=== PATIENT | female | born 1985 | race Asian ===

== ENCOUNTER → 2016-06-08 | Outpatient (CLI) | payer OTHER ==
--- NOTE | 2016-06-08 13:18 | US ---
June 08, [address] Damon, Thank you for allowing me to see your patient Maida Simon for anatomy evaluation. As you kn ow, she is a 31-year-old 1 with a dating 20 weeks 0 day(s). Her due date is 10/27/19 17 based on LMP consistent with 13-week ultrasound. She has no significant medical history She had a Sequential Screen done with the following results: Down syndrome risk 1 in 10,000, neural tube defe ct risk 1 in 4,600, and trisomy 18 risk 1 in 10,000. ULTRASOUND Number of fetuses: 1 presentation: breech Maximum vertical pocket: 5.7 cm Placenta - Appearance: Normal - Location: Anterior - Cord insertion: Intraplacental - Placenta previa: None Maternal Structures - Cervix: 5.5 cm measures transabdominally - Uterus: No obvious masses or anomaly seen - The adnexa were evaluated. No pathology was seen. -- Right ovary appears normal. It measures 3.1 x 1.0 x 2.7 cm. -- Left ovary not visualized Measurements Biparietal diameter: 48 mm, 20 weeks 5 days Head circumference: 177 mm, 20 weeks 2 days Abdominal circumference: 170 mm, 22 weeks 0 days Femur length: 32 mm, 20 weeks 0 days Humerus length: 31 mm, 20 weeks 3 days Transcerebellar diameter: 21 mm, 20 weeks 0 days Nasal Bone: 6.2 mm Nuchal Skinfold Thickness: 4.5 mm, Normal Average ultrasound age: 20 weeks 6 days Estimated weight: 389 gm weight percentile: 92 % Anatomy Head and Neck: - Cranial shape and integrity: Normal - Cerebral lateral ventricles: Normal, 5.2 mm - Choroid plexus: Normal - Midline falx: Normal - Cavum septum pellucidi: Normal - Brain parenchyma: Normal - Cerebellum: Normal - Cisternal Magna: Normal, 3.7 mm - Cerebellar vermis: Normal - Neck: Normal Face: - Upper lip: Normal - Profile: Normal - Coronal face: Normal - Alveolar ridge: Normal Heart: - 4-chamber view: Normal - LVOT: Normal - RVOT: Normal - Aortic arch: Normal - SVC/IVC: Normal - 3 vessel view: Normal - Interventricular septum: Normal - heart rate: 163 bpm Lungs: Normal Diaphragm: Normal Abdomen: - Stomach: Normal - Kidneys: Right: Normal, Left: Normal - Bladder: Normal - Abdominal Cord Insertion: Normal - Umbilical cord vessel number: 3 - Liver: Normal Spine: - Cervical: Normal - Thoracic: Normal - Lumbar: Normal - Sacral: Normal - Shape and curvature: Normal Extremities: - Right upper extremity: Normal architecture and position - Right Hand: Normal - Left upper extremity: Normal architecture and position - Left Hand: Normal - Right lower extremity: Normal architecture and position - Right foot: Normal - Left lower extremity: Normal architecture and position - Left foot: Normal Genitalia: Male Impression: 1. Intrauterine at 20 weeks 0 day(s), ultrasound is consistent with her established ASHLI of 10/26/2016. 2. Anatomy: The fetus measures appropriate for gestational age, measuring a normal weight and percen tile. Visualization of the fetus today reveals no overt structural anomalies. There is evidence of no rmal amniotic fluid, and movement was seen during the examination. 3. Cervical length is normal at 5.5 cm without evidence of insufficiency. Recommendations: I was pleased to share the results of today's ultrasound with your patient. I will leave further ult rasound follow-up to your clinical discretion. Thank you for allowing us the opportunity to evaluate your patient. Should you have any further ques tions or concerns please do not hesitate to contact me. No E&M for this encounter. Kacie Gillette M.D., Ph.D. It Security Analyst Department of Obstetrics and Gynecology [facility]
--- NOTE | 2016-06-08 18:00 | US ---
Ultrasound Obstetric second trimester greater than 14 weeks Indication: Evaluate anatomy. The estimated gestational age by LMP is 20 weeks and 0 days yie lding an EDC of October 26, 2016. Comparison: None. Findings: Number: 1 Presentation: Breech Placental Location: Anterior without previa Cervix: 5.5 cm MVP: 5.7 cm Heart Rate: 163 bpm. Right ovary measures 3.1 x 2.7 x 1 cm. Left ovary not visualized. Biometry: Biparietal Diameter: 48.37 mm 20 weeks, 5 days Head Circumference: 176.67 mm 20 weeks, 2 days Abdominal Circumference: 169.92 mm 22 weeks, 0 days Femur Length: 32.00 mm 20 weeks, 0 days Humerus Length: 31.07 mm 20 weeks, 3 days Transcerebellar Diameter: 21.00 mm 20 weeks, 0 days HC/AC: 1.04 (1.09 - 1.26) FL/BPD: 66% FL/AC: 19% Average Ultrasound Age: 20 weeks, 6 days EDC Based on Today's Average Ultrasound Age: October 20, 2016 Estimated weight is 389 gms +/- 57 gms. The estimated weight is at the 92 % based on previous dating. ANATOMY SURVEY: Supratentorial Brain: Normal Posterior Fossa: Normal Spine: Normal Nuchal fold: Normal Nose and Lips: Normal Facial Profile: Normal Heart: Four chamber heart. 163 bpm. Intact intraventricular septum. Cardiac Outflow Tracts: Normal Stomach: Normal Umbilical Cord Insertion: Normal Kidneys: Normal, no pyelectasis Bladder: Normal Number of Cord Vessels: Three Upper Extremities: Visualized Lower Extremities: Visualized. Impression: 1. Living hastings in breech presentation. 2. Size concordant with dates. 3. No overt anomalies detected. 4. Please see Dr. Kacie Gillette, consult and recommendations.
== END ==
LOC: FIMAGING 11:51
PROVIDERS: ATTEND Obstetrics & Gynecology
DX: Z34.02 Encounter for supervision of normal first pregnancy, second trimester (principal); Z3A.20 20 weeks gestation of pregnancy

== ENCOUNTER → 2016-10-03 | Outpatient (CLI) | payer OTHER | LOC: FIMAGING 09:35 | PROVIDERS: ATTEND Obstetrics & Gynecology | DX: O24.419 Gestational diabetes mellitus in pregnancy, unspecified control (principal); Z3A.36 36 weeks gestation of pregnancy ==

== ENCOUNTER 2016-10-13 15:53 | Observation (INO) | payer OTHER ==
[2016-10-13] MEDS ORDERED: OLIVE OIL 118 ML BTL MISC PRN (16:37)
[2016-10-13] MEDS ORDERED: EPSOM SALT 454 GM TP PRN (16:37)
[2016-10-13] MEDS ORDERED: OXYTOCIN/RINGERS LACTATE 1,000 ML IV PRN (16:37)
[2016-10-13] MEDS ORDERED: IBUPROFEN 600 MG TAB PO PRN (16:37)
[2016-10-13] MEDS ORDERED: TERBUTALINE SULFATE 1 MG/ML VIAL IV PRN (16:37)
[2016-10-13] MEDS ORDERED: LR 1,000 ML IV PRN (16:37)
--- NOTE | 2016-10-13 18:07 | GHP ---
[f rep st] HISTORY AND PHYSICAL DATE OF ADMISSION: 10/13/2016 CHIEF COMPLAINT: None. HISTORY OF PRESENT ILLNESS: The patient is a 31-year-old 1, para 0 female at 38 weeks and 1 day estimated gestational age, who presented to her routine OB visit for a nonstress test for gesta tional diabetes type A1. She had no complaints. She reported good movement and denied any le akage of fluid, vaginal bleeding, or contractions other than irregular Randall Gallegos. She had a non stress test with a baseline in the 140s and a late deceleration noted. There was good variability a nd no recurrent decelerations were noted. The patient was counseled along with her that I r ecommended admission and induction of labor for having a late deceleration at term, which could lali quita and placental insufficiency. She was counseled regarding all the risks of induction and they agreed to proceed. course has been significant for gestational diabetes controlled well with diet and being fo llowed by Dr. Borges: Status post the Tdap vaccine: Declined the flu vaccine: Genetic screening a ll normal with a normal sequential screen and normal anatomy scan: GBS negative. PAST MEDICAL HISTORY: Hospitalized for typhoid symptoms in high school. PAST SURGICAL HISTORY: Eye surgery to correct strabismus. SOCIAL HISTORY: Patient is and denies any tobacco, alcohol, or drug use. LABS: Blood type B positive, antibody screen negative, Pap normal, hematocrit 40 at new OB , varicella immune, rubella immune, RPR nonreactive, hepatitis B surface antigen and HIV negative, h ematocrit of 35 at 28 weeks, 1-hour GTT elevated and 3-hour GTT elevated, GBS negative, gonorrhea an d chlamydia negative. PHYSICAL EXAMINATION: VITAL SIGNS: Blood pressure 102/66, weight 137.5 pounds. heart rate t racing 140s with moderate variability present and late deceleration at 1530. GENERAL: No acute dis tress. Well-developed, well-nourished female. CARDIOVASCULAR: Regular rate and rhythm. LUNGS: C lear to auscultation bilaterally. PELVIC: Cervix 2-3 cm dilated, 70% effaced, and -2 station with fetus vertex in presentation. ASSESSMENT: Patient is a 31-year-old 1, para 0 female at 38 weeks and 1 day estimated gesta tional age with deceleration noted during testing for gestational diabetes. PLAN: 1. Admit for induction of labor. 2. Induction: Will initiate Pitocin for induction of labor. 3. Group B streptococcus negative. 4. Gestational diabetes, diet controlled: Will check blood sugar levels q.4 hours in labor and rosmery at as needed if less than 60/200. /[id number]/MODL
--- NOTE | 2016-10-13 18:50 | SOAPPROG ---
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 Fluid WNL Not in active labor A1GDM Plan: Reviewed plan of care with MFM Dr. Meghna Ignacio, recommend to send patient home as there is no evidence of distress of placental insufficiency based on negative spontaneous PRINCIPAL DATABASE DEVELOPER and normal fluid evaluation. Strict precautions given for return (LOF, VB, dec FM, labor, PIH symptoms) Plan return to L&D on Sunday for repeat NST, otherwise follow-up in office as scheduled 10/13/16 18:52 Subjective: Patient is a 31 yo G1 at 38w1d with complicated by A1GDM. She was seen in the office for NST and routine visit today, and immediately after being placed on the monitor she had a late decel. She was sent to L&D for plans for further monitoring and likely IOL. Upon presentation to L&D she has ongoing contractions every 2-5 minutes, 2/10, no LOF, active fetus, and no VB. Objective: 108/69, 88, 14, 37.4 NAD, rare mild distress with contraction Resp: unlabored CV: RRR Abd: gravid at term, soft, nontender Ext: no edema SVE 2.5 cm/60/-1/vtx/posterior (unchanged from clinic) FHR baseline 130-140, mod agusto, + acc, no decels Scott: every 2-5 minutes Bedside TAUS: ZOË 19.7 cm Vertex ICD10 Worksheet Patient Problems: Problems Problem Status Onset 38 weeks gestation of Acute
== END 2016-10-13 18:36 | disposition home or self-care (01) ==
LOC: FLD 15:53
PROVIDERS: ADMIT Obstetrics & Gynecology; ATTEND Obstetrics & Gynecology
DX: Z03.79 Encounter for other suspected maternal and fetal conditions ruled out (principal); O24.410 Gestational diabetes mellitus in pregnancy, diet controlled; Z3A.38 38 weeks gestation of pregnancy
CPT/HCPCS: G0378 ×2

== ENCOUNTER 2016-10-13 22:43 | Inpatient (IN) | payer OTHER ==
[2016-10-14] MEDS ORDERED: PROMETHAZINE HCL 25 MG TAB PO ONE (00:02)
--- NOTE | 2016-10-14 00:30 | OBPROG ---
OBG Progress Note Assessment/Plan: Assessment: 38w2d Early labor status reassuring A1GDM well controlled Plan: Morphine sleep at patient's request Reevaluate in 1-2 hours or later if patient able to sleep Admit if she demonstrates change on next cervical check 10/14/16 00:29 Subjective: G1 at 38w2d here for r/o labor. Medhat painfully x 3 hrs. No LOF or VB Objective: VS WNL (tracevue) Gen: uncomfortable during contractions, resting comfortable in between Abd: soft, nontender Ext: no edema SVE 3.5/50/-2/vtx/intact/posterior Current Contraction Pattern: Regular FHR (bpm): 130 FHR Pattern Variability: Moderate FHR Category: 1 Membranes: Intact ICD10 Worksheet Patient Problems: Problems Problem Status Onset 38 weeks gestation of Acute
[2016-10-14] MEDS ORDERED: LR 1,000 ML IV PRN (00:39)
[2016-10-14] MEDS ORDERED: OXYTOCIN/RINGERS LACTATE 1,000 ML IV PRN (00:39)
[2016-10-14] MEDS ORDERED: OLIVE OIL 118 ML BTL MISC PRN (00:39)
[2016-10-14] MEDS ORDERED: EPSOM SALT 454 GM TP PRN (00:39)
[2016-10-14] MEDS ORDERED: TERBUTALINE SULFATE 1 MG/ML VIAL IV PRN (00:39)
[2016-10-14] MEDS ORDERED: LIDOCAINE 1% 300 MG/30 ML SDV ONE (00:56)
[2016-10-14] MEDS ORDERED: TERBUTALINE SULFATE 1 MG/ML VIAL ONE (00:56)
[2016-10-14] MEDS ORDERED: OLIVE OIL 118 ML BTL ONE (00:56)
[2016-10-14] MEDS ORDERED: AMMONIA AROMATIC 1 EACH AMP IH ONE (00:56)
[2016-10-14] MEDS ORDERED: OXYTOCIN 10 UNIT/ML VIAL ONE (00:56)
[2016-10-14] MEDS ORDERED: MISOPROSTOL 200 MCG TAB ONE (00:57)
[2016-10-14 00:58] LABS: % IMMATURE GRANULYOCYTES 0.5 % (0.0-1.1); ABSOLUTE IMMATURE GRANULOCYTES 0.07 10^3/uL (0.00-0.10); ADD DIFF? NO; ADD MORPH? NO; ADD SCAN? NO; ATYPICAL LYMPHOCYTE FLAG 0 (0-99); FRAGMENT RBC FLAG 0 (0-99); HEMATOCRIT 40.2 % (38.0-47.0); HEMOGLOBIN 13.6 g/dL (12.6-16.3); LEFT SHIFT FLG 0 (0-99); LIPEMIA HEMOLYSIS FLAG 90 (0-99); MEAN CELL HEMOGLOBIN 31.6 pg (27.9-34.1); MEAN CELL HEMOGLOBIN CONCENTR. 33.8 g/dL (32.4-36.7); MEAN CELL VOLUME 93.3 fL (81.5-99.8); MEAN PLATELET VOLUME 11.1 fL (8.7-11.7); PLATELET CLUMPS FLAG 0 (0-99); PLATELET COUNT 208 10^3/uL (150-400); RED BLOOD CELL COUNT 4.31 10^6/uL (4.18-5.33); RED CELL DISTRIBUTION WIDTH 14.2 % (11.5-15.2)
[2016-10-14] MEDS ORDERED: ONDANSETRON 4 MG/2 ML VIAL IVP PRN ×2 (03:29→04:32)
[2016-10-14] MEDS ORDERED: fentaNYL 2MCG/ML/BUP 0.1% RTU 100 ML BAG EP ONE (03:32)
[2016-10-14] MEDS ORDERED: BUPIVACAINE 0.25% 30 ML SDV ONE (03:33)
[2016-10-14] MEDS ORDERED: PHENYLEPHRINE HCL 100 MCG/ML SYR ONE (03:33)
[2016-10-14] MEDS ORDERED: fentaNYL 100 MCG/2 ML INJ ONE (03:34)
--- NOTE | 2016-10-14 04:08 | GHP ---
[f rep st] HISTORY AND PHYSICAL DATE OF ADMISSION: 10/13/2016 CHIEF COMPLAINT: Contractions. HISTORY OF PRESENT ILLNESS: Patient is a 31-year-old, 1, para 1, female at 38 weeks 1 day estimated gestational age. She has a that is complicated by A1 GDM. She was seen yesterday and was evaluated for labor, and was found to be in latent labor with a cervix of 2-3 cm dilated and she was sent home. While at home, she began to have painful regular contractions for 3 hours. She re-presented to the hospital and was 4 cm dilated, and was requesting pain medication. She completed morphine sleep for about 2 hours, and has now woken up and is continuing to contract painfully. On repeat cervical check, she is now found to be 5-6 cm dilated with a bulging bag of water so she will be admitted to the hospital for active labor. She is requesting epidural at this time. monitoring has been reassuring with a category 1 tracing. course has been significant for gestational diabetes, well controlled with diet, being followed by Dr. Borges. She is status post a Tdap vaccine. She declined the flu vaccine. Genetic screening was normal with a sequential screen and anatomy scan. GBS negative. She is Rh positive and immune to rubella. Her other labs were unremarkable. PAST MEDICAL HISTORY: History of hospitalization for typhoid symptoms while she was in high school. PAST SURGICAL HISTORY: Eye surgery to correct strabismus. SOCIAL HISTORY: She is . Denies any tobacco, alcohol, or drug use. She is a chemical handler. LABORATORY DATA: labs: Blood type B positive, antibody screen negative. Pap normal. Hematocrit 40 at new OB. Varicella immune. Rubella immune. RPR nonreactive. Hepatitis B surface antigen and HIV negative. Hematocrit 35 at 28 weeks. 1 hour GTT elevated and 3 hour GTT elevated. GBS negative. Gonorrhea and chlamydia negative. REVIEW OF SYSTEMS: Patient is endorsing nausea at this time. Otherwise, review of symptoms is negative except as stated in History of Present Illness. PHYSICAL EXAM: VITAL SIGNS: Within normal limits, charted in OB TraceVue. heart rate tracing category 1 with moderate variability and accelerations. GENERAL: [id number] distress during contractions. Otherwise, no acute distress between contractions. Well-developed, well- nourished female. CARDIOVASCULAR: Regular rate and rhythm. LUNGS: Clear to auscultation bilaterally. ABDOMEN: Gravid, soft, nontender. EFW 7.5 pounds on Xavi exam. PELVIC: Cervix 5-6 cm, 90% effaced, bulging bag of water, -2 station, vertex fetus. EXTREMITIES: No edema. ASSESSMENT: Patient is a 31-year-old, 1, para 0, female at 38 weeks and 2 days by estimated gestational age who is in active labor. She currently has a reassuring status. She is GBS negative. PLAN: Admit for labor. Epidural now at patient's request. Patient agrees to proceed with artificial rupture of membranes after epidural placement for augmentation of labor. We will begin checking blood sugars now every 4 hours and treat if indicated for a blood sugar level greater than 120 prior to delivery. Will plan continuous monitoring after initiation of epidural. /[id number]/MODL MTDD
[2016-10-14] MEDS ORDERED: PHENYLEPHRINE HCL 100 MCG/ML SYR IVP PRN (04:32)
[2016-10-14] MEDS ORDERED: NALOXONE HCL 0.4 MG/ML INJ IVP PRN (04:32)
[2016-10-14] MEDS ORDERED: LR 500 ML IV SCH (05:00)
[2016-10-14] MEDS ORDERED: fentaNYL 2MCG/ML/BUP 0.1% RTU 100 ML EP SCH (05:00)
--- NOTE | 2016-10-14 06:16 | OBPROG ---
OBG Progress Note Assessment/Plan: Assessment: 38w2d Labor status reassuring A1GDM well controlled (glucose = 112) AROM performed, clear fluid Plan: Expectant management Continuous monitoring Repeat SVE in 2 hours Repeat glucose in 2 hours, if normal then OK for every 4 hours 10/14/16 00:29 10/14/16 06:14 Subjective: Comfortable with epidural Objective: 10/14/16 00:15 Patient ABO/Rh B POSITIVE 10/14/16 00:15 VS WNL (tracevue) Resting comfortably - SVE Dilation (cm): 6 Effacement (%): 90 Station: -2 Current Contraction Pattern: Regular FHR (bpm): 140 FHR Pattern Variability: Moderate FHR Category: 1 Membranes: AROM Amniotic Fluid Color: Clear ICD10 Worksheet Patient Problems: Problems Problem Status Onset 38 weeks gestation of Acute
[2016-10-14] MEDS ORDERED: LR 500 ML IV PRN (08:04)
--- NOTE | 2016-10-14 08:08 | OBPROG ---
OBG Progress Note Assessment/Plan: Assessment: 38w2d Labor--no change in last 2 hours despite AROM Direct OP presentation status reassuring A1GDM well controlled (glucose = 112) Borderline low O2 sats when sleeping, she denies chest pain or SOB Plan: IUPC placed, recommend pitocin AOL if MVU inadequate given no cervical change in last 2 hours Repeat blood sugar Monitor temp (was 37.6) O2 face mask prn Continuous monitoring Position changes with peanut ball 10/14/16 08:08 Subjective: Just had broth but then with emesis afterwards. Denies feeling nauseous now. Not feeling any pressure Objective: 10/14/16 00:15 Patient ABO/Rh B POSITIVE 10/14/16 00:15 VS reviewed, notable for borderline low O2 (mid 80s-low 90s), improved with O2 face mask and deep breaths - SVE Dilation (cm): 6 Effacement (%): 80 Station: -1 Current Contraction Pattern: Regular FHR (bpm): 140 FHR Pattern Variability: Moderate FHR Category: 1 Membranes: AROM Amniotic Fluid Color: Clear ICD10 Worksheet Patient Problems: Problems Problem Status Onset 38 weeks gestation of Acute
[2016-10-14] MEDS ORDERED: OXYTOCIN/RINGERS LACTATE 500 ML IV SCH (08:30)
[2016-10-14] MEDS ORDERED: CITRIC ACID/SODIUM CITRATE 30 ML UDCUP ONE (10:35)
--- NOTE | 2016-10-14 10:54 | OBPROG ---
OBG Progress Note Assessment/Plan: Assessment: 38w2d Labor C/C/+2 TRISTIN presentation status reassuring with mod agusto A1GDM well controlled, last glucose = 98 Plan: Pushing--pt with great effort. Expect Subjective: feeling pressure Objective: 10/14/16 00:15 Patient ABO/Rh B POSITIVE 10/14/16 00:15 - SVE Dilation (cm): 10 Effacement (%): 100 Station: +2 Current Contraction Pattern: Regular FHR (bpm): 140 FHR Pattern Variability: Moderate FHR Category: 2 Membranes: AROM Amniotic Fluid Color: Clear ICD10 Worksheet Patient Problems: Problems Problem Status Onset 38 weeks gestation of Acute
[2016-10-14] MEDS: IBUPROFEN 600 MG TAB PO PRN ×2 (11:56→18:01)
[2016-10-14] MEDS ORDERED: ACETAMINOPHEN 325 MG TAB PO PRN (13:17)
[2016-10-14] MEDS ORDERED: HYDROCORTISONE 0.5% CREAM TP PRN (13:17)
[2016-10-14] MEDS ORDERED: SIMETHICONE 80 MG TAB CHEW PO PRN (13:17)
--- NOTE | 2016-10-14 13:20 | OBPROC ---
- Labor and Delivery Onset of Contractions Date: 10/13/16 Onset of Contractions Type: Spontaneous Rupture of Membranes Date: 10/14/16 Rupture of Membranes Type: Artificial Amniotic Fluid Color: Clear Delivery Type: Spontaneous Episiotomy/Laceration: 2nd Degree Repair: 3-0 EBL: 300 Complications: None - Medications Labor Augmentation/Induction Meds Used: Pitocin Labor Augmentation/Induction Indication: Medical (inadequate MVUS, failure to dilate) Anesthesia: Epidural - [place] Info Infant A Delivery Date: 10/14/16 Delivery Time: 11:11 Sex of : Male Score (1 Min): 8 Score (5 Min): 9 (Uncomplicated of vigorous male infant, put skin to skin on maternal chest. Delayed cord clamping. Pushed x 50 minutes.)
[2016-10-14] MEDS ORDERED: HYDROCODONE/APAP 5/325 TAB PO PRN (15:18)
[2016-10-15] MEDS: IBUPROFEN 600 MG TAB PO PRN ×4 (00:19→19:57)
[2016-10-15] MEDS: DOCUSATE SODIUM 100 MG CAP PO PRN ×2 (07:11→19:58)
--- NOTE | 2016-10-15 08:31 | SOAPPROG ---
SOAP Progress Note Assessment/Plan: Assessment: 31 yo s/p , ppd 1, doing well. Plan: 10/15/16 08:30 Rh +, rubella immune. Routine pp care. Home tomorrow. Subjective: 31 yo s/p , ppd 1, doing well. No significant complaints. Objective: Vital Signs Temp Pulse Resp BP Pulse Ox 37.0 C 76 16 89/59 L 94 10/14/16 20:00 10/14/16 20:00 10/14/16 20:00 10/14/16 20:00 10/14/16 20:00 Laboratory Results 10/14/16 00:15 Physical Exam - Physical Exam General Appearance: no apparent distress Respiratory: lungs clear Cardiac/Chest: regular rate, rhythm Abdomen: non-tender Skin: warm/dry Extremities: non-tender Neuro/Psych: oriented x 3 ICD10 Worksheet Patient Problems: Problems Problem Status Onset 38 weeks gestation of Acute
[2016-10-16] MEDS: IBUPROFEN 600 MG TAB PO PRN ×2 (02:57→08:59)
[2016-10-16] MEDS: DOCUSATE SODIUM 100 MG CAP PO PRN (08:59)
[2016-10-16 09:44] VITALS: BP 103/66; PULSE 70; RESP 16; TEMP 98.3; O2SAT 97
--- NOTE | 2016-10-16 10:49 | OBPROG ---
OBG Progress Note Assessment/Plan: Assessment: 31 y/o female PPD#2 s/p - doing well Plan: Discharge home RH+/RI F/U in 4 weeks or sooner prn, bleeding/pain/fever precautions RX for motrin given 10/16/16 10:48 Subjective: Pt feeling well, no complaints. Ambulating, voiding, passing flatus, tolerating regular diet, lochia diminishing, and breast feeding progressing. Objective: 10/14/16 00:15 Patient ABO/Rh B POSITIVE 10/14/16 00:15 Temp Pulse Resp BP Pulse Ox 36.8 C 70 16 103/66 97 10/16/16 08:00 10/16/16 08:00 10/16/16 08:00 10/16/16 08:00 10/16/16 08:00 Uterine Position/Fundal Height: Umbilicus -1 Uterine Tone: Firm ICD10 Worksheet Patient Problems: Problems Problem Status Onset 38 weeks gestation of Acute
== END 2016-10-16 16:40 | disposition home or self-care (01) | DRG 775 ==
LOC: FLD 22:43 → OBSVTOIN 22:43 → FOB 10-14 14:55
PROVIDERS: ADMIT Obstetrics & Gynecology; ATTEND Obstetrics & Gynecology
DX: O62.1 Secondary uterine inertia (principal); O24.410 Gestational diabetes mellitus in pregnancy, diet controlled; O70.1 Second degree perineal laceration during delivery; Z3A.38 38 weeks gestation of pregnancy; Z37.0 Single live birth
CPT/HCPCS: J2370; J2590; J3010; J3105

== ENCOUNTER → 2018-09-30 | Outpatient (CLI) | payer OTHER | LOC: FIMAGING 14:21 | PROVIDERS: ATTEND Obstetrics & Gynecology | DX: Z34.81 Encounter for supervision of other normal pregnancy, first trimester (principal) ==